=== PATIENT | female | born 1975 | race Caucasian/White ===

== ENCOUNTER → 2017-06-02 10:50 | Outpatient (CLI) | payer OTHER, SELFPAY ==
[2017-06-02 12:03] LABS: Basophils % 0.6 % (0.1-2.0); Eosinophils # 0.3 K/mm3 (0.0-0.4); Hematocrit 39.7 % (37.0-47.0); Lymphocytes # 1.8 K/mm3 (0.7-4.5); Mean Corpuscular HGB Conc 32.8 g/dL (31.8-35.4); Mean Corpuscular Hemoglobin 30.6 pg (27.0-31.2); Mean Corpuscular Volume 93.4 fl (81-99); Monocytes # 0.5 K/mm3 (0.1-1.0); Monocytes % 7.5 % (1.7-9.3); Neutrophils # 3.7 K/mm3 (1.8-7.8); Neutrophils % 59.9 % (37.0-80.0); Platelet Count 231 K/mm3 (142-424); Red Blood Count 4.25 M/mm3 (4.20-5.40); Red Cell Distribution Width 12.8 % (11.5-17.5); White Blood Count 6.2 K/mm3 (4.8-10.8)
[2017-06-02 13:00] LABS: Alanine Aminotransferase 22 U/L (12-78); Albumin Level 4.3 gm/dL (3.4-5.0); Albumin/Globulin Ratio 1.4 (1.1-1.8); Alkaline Phosphatase 35 U/L (46-116); Aspartate Amino Transferase 12 U/L (15-37); Bilirubin,Total 0.3 mg/dL (0.2-1.0); Blood Urea Nitrogen 15 mg/dL (7-18); Calcium 8.7 mg/dL (8.5-10.1); Carbon Dioxide 28 mmol/L (21.0-32.0); Chloride 106 mmol/L (98-107); Chol/HDL Ratio 4.1 (1-3.5); Cholesterol 191 mg/dL (140-200); Creatinine,Serum 0.72 mg/dL (0.55-1.02); Estimated Glomerular Filt Rate 88 ml/min (>60); Ferritin 26 ng/mL (8-388); GFR (African American) 107 ML/MIN (>60); Globulin 3.1 gm/dl (1.3-3.2); Glucose 82 mg/dL (74-106); HDL Cholesterol 47 mg/dL (29-89); LDL Cholesterol 128 mg/dL (0-130); Sodium 143 mmol/L (136-145); Thyroid Stimulating Hormone 2.23 uIU/ml (0.358-3.740); Total Protein,Serum 7.4 gm/dL (6.4-8.2); Triglycerides 80 mg/dL (30-200); VLDL Cholesterol 16 mg/dL (0-40)
[2017-06-03 19:09] LABS: Vitamin D 25 Hydroxy 29.6 ng/mL (30.0-100.0)
== END ==
PROVIDERS: PCP Internal Medicine Adolescent Medicine; Visit Provider Nurse Practitioner Family
DX: Z00.00 Encounter for general adult medical examination without abnormal findings (principal); E03.9 Hypothyroidism, unspecified
CPT/HCPCS: 36415; 80053; 80061; 82652; 82728; 84443; 85025

== ENCOUNTER → 2018-06-22 13:24 | Outpatient (CLI) | payer OTHER, SELFPAY ==
[2018-06-22 15:16] LABS: Alanine Aminotransferase 52 U/L (12-78); Albumin Level 4.9 gm/dL (3.4-5.0); Albumin/Globulin Ratio 1.3 (1.1-1.8); Alkaline Phosphatase 51 U/L (46-116); Anion Gap 17.5 mEq/L (5-15); Aspartate Amino Transferase 37 U/L (15-37); Bilirubin,Total 0.4 mg/dL (0.2-1.0); Blood Urea Nitrogen 10 mg/dL (7-18); Calcium 9.4 mg/dL (8.5-10.1); Carbon Dioxide 26 mmol/L (21.0-32.0); Chloride 100 mmol/L (98-107); Chol/HDL Ratio 4.9 (1-3.5); Cholesterol 281 mg/dL (140-200); Creatinine,Serum 0.75 mg/dL (0.55-1.02); Estimated Glomerular Filt Rate 84 ml/min (>60); Free T4 (Free Thyroxine) 0.79 ng/dl (0.76-1.46); GFR (African American) 102 ML/MIN (>60); Globulin 3.7 gm/dl (1.3-3.2); Glucose 85 mg/dL (74-106); HDL Cholesterol 57 mg/dL (29-89); LDL Cholesterol 208 mg/dL (0-130); Potassium 3.5 mmoL/L (3.5-5.1); Sodium 140 mmol/L (136-145); Thyroid Stimulating Hormone 2.14 uIU/ml (0.358-3.740); Total Protein,Serum 8.6 gm/dL (6.4-8.2); Triglycerides 78 mg/dL (30-200); VLDL Cholesterol 16 mg/dL (0-40)
[2018-06-22 15:35] LABS: Basophils % 0.7 % (0.1-2.0); Eosinophils # 0.1 K/mm3 (0.0-0.4); Eosinophils % 1.3 % (0.1-12.0); Hematocrit 43.9 % (37.0-47.0); Hemoglobin 14.5 g/dL (12.2-16.2); Lymphocytes % 33.1 % (10-50); Mean Corpuscular HGB Conc 33.1 g/dL (31.8-35.4); Mean Corpuscular Hemoglobin 31.1 pg (27.0-31.2); Mean Platelet Volume 8.2 fl (7.4-10.4); Monocytes # 0.4 K/mm3 (0.1-1.0); Monocytes % 6.4 % (1.7-9.3); Neutrophils # 3.5 K/mm3 (1.8-7.8); Neutrophils % 58.5 % (37.0-80.0); Platelet Count 300 K/mm3 (142-424); Red Blood Count 4.67 M/mm3 (4.20-5.40); Red Cell Distribution Width 12.9 % (11.5-17.5)
[2018-06-25 13:22] LABS: Triiodothyronine (T3) Free 2.2 pg/mL (2.0-4.4); Vitamin B12 467 pg/mL (232-1245)
[2018-06-25 13:23] LABS: Vitamin D 25 Hydroxy 32.7 ng/mL (30.0-100.0)
== END ==
PROVIDERS: Visit Provider Nurse Practitioner Family
DX: Z00.00 Encounter for general adult medical examination without abnormal findings (principal); E03.9 Hypothyroidism, unspecified; E55.9 Vitamin D deficiency, unspecified; Z86.39 Personal history of other endocrine, nutritional and metabolic disease
CPT/HCPCS: 36415; 80053; 80061; 82607; 82652; 84439; 84443; 84481; 85025

== ENCOUNTER → 2018-08-25 14:24 | Outpatient (CLI) | payer OTHER, SELFPAY ==
[2018-08-25 15:48] LABS: Basophils # 0.1 K/mm3 (0-0.2); Basophils % 0.7 % (0.1-2.0); Eosinophils # 0.2 K/mm3 (0.0-0.4); Eosinophils % 2.4 % (0.1-12.0); Hematocrit 40.3 % (37.0-47.0); Hemoglobin 13.7 g/dL (12.2-16.2); Lymphocytes # 2.3 K/mm3 (0.7-4.5); Lymphocytes % 34.7 % (10-50); Mean Corpuscular HGB Conc 33.8 g/dL (31.8-35.4); Mean Corpuscular Volume 91.5 fl (81-99); Mean Platelet Volume 7.6 fl (7.4-10.4); Monocytes # 0.3 K/mm3 (0.1-1.0); Monocytes % 4.7 % (1.7-9.3); Neutrophils # 3.8 K/mm3 (1.8-7.8); Neutrophils % 57.4 % (37.0-80.0); Platelet Count 282 K/mm3 (142-424); Red Blood Count 4.41 M/mm3 (4.20-5.40); Red Cell Distribution Width 12.8 % (11.5-17.5); White Blood Count 6.6 K/mm3 (4.8-10.8)
[2018-08-25 16:22] LABS: Alanine Aminotransferase 30 U/L (12-78); Albumin Level 4.9 gm/dL (3.4-5.0); Albumin/Globulin Ratio 1.4 (1.1-1.8); Alkaline Phosphatase 50 U/L (46-116); Anion Gap 12.9 mEq/L (5-15); Aspartate Amino Transferase 20 U/L (15-37); Bilirubin,Total 0.4 mg/dL (0.2-1.0); Blood Urea Nitrogen 10 mg/dL (7-18); Calcium 9.3 mg/dL (8.5-10.1); Carbon Dioxide 28 mmol/L (21.0-32.0); Chloride 101 mmol/L (98-107); Chol/HDL Ratio 4.3 (1-3.5); Cholesterol 206 mg/dL (140-200); Creatinine,Serum 0.75 mg/dL (0.55-1.02); Estimated Glomerular Filt Rate 84 ml/min (>60); Free T4 (Free Thyroxine) 0.88 ng/dl (0.76-1.46); Free Thyroxine Index 2.4 ug/dL (5.93-13.13); GFR (African American) 102 ML/MIN (>60); Globulin 3.6 gm/dl (1.3-3.2); Glucose 83 mg/dL (74-106); HDL Cholesterol 48 mg/dL (29-89); LDL Cholesterol 144 mg/dL (0-130); Potassium 3.9 mmoL/L (3.5-5.1); Sodium 138 mmol/L (136-145); T4 (Thyroxine) 8.3 ug/dl (4.7-13.3); Thyroid Stimulating Hormone 1.97 uIU/ml (0.358-3.740); Total Protein,Serum 8.5 gm/dL (6.4-8.2); Triglycerides 68 mg/dL (30-200); Triiodothryronine (T3) Uptake 29 % (31-39); VLDL Cholesterol 14 mg/dL (0-40)
[2018-08-26 08:19] LABS: Thyroid Peroxidase Antibodies 216 IU/mL (0-34)
[2018-08-27 13:07] LABS: Triiodothyronine (T3) Free 2.8 pg/mL (2.0-4.4); Vitamin B12 513 pg/mL (232-1245)
== END ==
PROVIDERS: PCP Internal Medicine Adolescent Medicine; Visit Provider Nurse Practitioner Obstetrics & Gynecology
DX: R53.82 Chronic fatigue, unspecified (principal); Z01.419 Encounter for gynecological examination (general) (routine) without abnormal findings
CPT/HCPCS: 36415; 80053; 80061; 82607; 82652; 84436; 84439; 84443; 84479; 84481; 85025; 86376

== ENCOUNTER 2020-08-01 11:46 | Emergency (ER) | payer BC, SELFPAY ==
[2020-08-01 12:07] VITALS: BP 138/87; PULSE 83; RESP 14; TEMP 36.7; O2SAT 100; BMI 23.8
--- NOTE | 2020-08-01 12:13 | HMH.EDUTC ---
[facility] [place] Clinical Impression: Tooth [place] Disposition: Home, Self-Care Condition on Discharge: Good Instructions: Tooth Abscess, DI for Tooth Abscess Additional Instructions: follow up with dentist on monday bland diet Monitor temperature. Seek treatment if fever develops. Follow-up immediately if new or worse symptoms worsen or no noticeable improvement over 48 hours. Increase fluids such as water, Gatorade, Powerade, juice or Pedialyte with limited formula/dietary in children No food is okay as long as you are drinking. Once ready to eat start bland such as bananas, rice, applesauce, toast. Follow-up immediately for new or worsening symptoms or no noticeable improvement over the next 48 hours. Prescriptions: ondansetron HCL [Zofran 4mg Tab*] 4 mg PO TIDP PRN 4 Days #8 tab PRN Reason: Nausea Prescription Printed Referrals: Jose Interiano MD [Primary Care Provider] - Time of Disposition: 13:26 Medical Decision Making - Sven Inquiry Pt receiving controlled substance: No Vital Signs: 08/01/20 12:07 Temperature 98.1 F Temperature Source Oral Pulse Rate [Right Brachial] 83 Respiratory Rate 14 Blood Pressure [Right Arm] 138/87 Blood Pressure Mean [Right Arm] 104 Blood Pressure Source [Right Arm] Automatic Cuff Blood Pressure Position [Right Arm] Sitting 02 Sat by Pulse Oximetry 100 Oxygen Delivery Method Room Air - Lab Data Lab Results 08/01/20 12:20: WBC 10.4, RBC 4.47, Hgb 13.9, Hct 40.9, MCV 91.4, MCH 31.1, MCHC 34.0, RDW 12.9, Plt Count 310, MPV 7.8, Neut % (Auto) 82.2 H, Lymph % (Auto) 11.9, [place] % (Auto) 4.8, Eos % (Auto) 0.7, Baso % (Auto) 0.4, Neut # (Auto) 8.5 H, Lymph # (Auto) 1.2, [place] # (Auto) 0.5, Eos # (Auto) 0.1, Baso # (Auto) 0.0 08/01/20 12:20: Sodium 140, Potassium 3.6, Chloride 104, Carbon Dioxide 23, Anion Gap 16.6 H, BUN 6 L, Creatinine 0.60, Estimated Creat Clear 109, Estimated GFR 108, Est GFR ( Amer) 130, Glucose 107 H, Calcium 10.0, Total Bilirubin 0.6, AST 34, ALT 31, Alkaline Phosphatase 63, Total Protein 8.9 H, Albumin 5.4 H, Globulin 3.5 H, Albumin/Globulin Ratio 1.5 Result diagrams: 08/01/20 12:20 08/01/20 12:20 Orders (Tests/Meds): ED MEDICATIONS Generic Name Dose Route Start Last Admin Trade Name Freq PRN Reason Stop Dose Admin Sodium Chloride 1,000 mls @ 999 mls/hr 08/01/20 12:15 08/01/20 12:10 Sod Chlor 0.9% 1000ml Bag IV 08/01/20 13:15 999 mls/hr .Q1H1M ABENA Administration Sodium Chloride 10 ml 08/01/20 12:09 Sodium Chloride 0.9% 10ml Flush Syringe IV 08/02/20 00:12 NEEDED PRN Maintain IV Site Discontinued Medications Generic Name Dose Route Start Last Admin Trade Name Freq PRN Reason Stop Dose Admin Ceftriaxone Sodium 1 gm/ 50 mls @ 100 mls/hr 08/01/20 12:09 08/01/20 12:25 Sodium Chloride IV 08/01/20 12:38 100 mls/hr ONCE ONE Administration Protocol Ketorolac Tromethamine 15 mg 08/01/20 12:09 08/01/20 12:30 Ketorolac 30mg/Ml Vial IV 08/01/20 12:10 15 mg ONCE ONE Administration Promethazine HCl 12.5 mg 08/01/20 12:09 08/01/20 12:32 Promethazine Hcl 25mg/Ml 1ml Vial IV 08/01/20 12:10 12.5 mg ONCE ONE Administration Sodium Chloride 25 ml 08/01/20 12:09 Sodium Chloride 0.9% 25ml Bag IV 08/01/20 12:10 ONCE ONE [facility] [place] - General Chief complaint: [facility] Stated complaint: dental pain, dehydrated Time Seen by Provider: 08/01/20 12:13 Mode of Arrival: Ambulatory Source of Information: Patient, Parent(s) Limitations: No Limitations Description of Symptoms (Recalled from Triage Doc. by RN): unable to eat or drink, abcess x2 days, nausea, currently on amoxicillin 500 mg TID, and percocet HEENT Symptoms (Recalled from RN notes): No Resp Symptoms (Recalled from RN notes): No Skin Symptoms (Recalled from RN notes): No MS Symptoms (Recalled from RN notes): No Functional Status (Recalled from RN notes): dental abcess - History of Present
[2020-08-01 12:31] LABS: Basophils % 0.4 % (0.1-2.0); Chloride 104 mmol/L (98-107); Eosinophils # 0.1 K/mm3 (0.0-0.4); Eosinophils % 0.7 % (0.1-12.0); Hematocrit 40.9 % (37.0-47.0); Hemoglobin 13.9 g/dL (12.2-16.2); Lymphocytes # 1.2 K/mm3 (0.7-4.5); Lymphocytes % 11.9 % (10-50); Mean Corpuscular Hemoglobin 31.1 pg (27.0-31.2); Mean Corpuscular Volume 91.4 fl (81-99); Mean Platelet Volume 7.8 fl (7.4-10.4); Monocytes # 0.5 K/mm3 (0.1-1.0); Monocytes % 4.8 % (1.7-9.3); Neutrophils # 8.5 K/mm3 (1.8-7.8); Neutrophils % 82.2 % (37.0-80.0); Platelet Count 310 K/mm3 (142-424); Red Blood Count 4.47 M/mm3 (4.20-5.40); Red Cell Distribution Width 12.9 % (11.5-17.5); White Blood Count 10.4 K/mm3 (4.8-10.8)
[2020-08-01 12:32] LABS: Potassium 3.6 mmoL/L (3.5-5.1); Sodium 140 mmol/L (136-145)
[2020-08-01 12:34] LABS: Alanine Aminotransferase 31 U/L (12-78); Aspartate Amino Transferase 34 U/L (14-36); Blood Urea Nitrogen 6 mg/dl (7-17); Creatinine Clearance Estimated 109 mL/min (50-200); Estimated Glomerular Filt Rate 108 ml/min (>60); GFR (African American) 130 ML/MIN (>60)
[2020-08-01 12:35] LABS: Albumin Level 5.4 g/dl (3.5-5.0); Albumin/Globulin Ratio 1.5 (1.1-1.8); Alkaline Phosphatase 63 U/L (38-126); Anion Gap 16.6 mEq/L (5-15); Bilirubin,Total 0.6 mg/dl (0.2-1.3); Carbon Dioxide 23 mmol/L (22.0-30.0); Globulin 3.5 g/dL (1.3-3.2); Glucose 107 mg/dl (74-100); Total Protein,Serum 8.9 g/dl (6.3-8.2)
[2020-08-01 13:37] VITALS: BP 130/70; PULSE 70; RESP 14; TEMP 36.7; O2SAT 100
== END 2020-08-01 13:40 | disposition home or self-care (01) ==
LOC: ER 12:02 → UTC 12:02
PROVIDERS: Emergency Provider Nurse Practitioner Family; PCP Internal Medicine Adolescent Medicine
DX: K04.7 Periapical abscess without sinus (principal)
CPT/HCPCS: 80053; 85025; 96360; 96365; 96376; 99202; G0463

== ENCOUNTER 2020-09-13 06:12 | Emergency (ER) | payer BC, SELFPAY ==
[2020-09-13] VITALS (8 sets, daily range): BP systolic 91–123; BP diastolic 58–74; PULSE 80–93; RESP 15–20; TEMP 36.4–36.8; O2SAT 97–100; BMI 22.1
--- NOTE | 2020-09-13 | ECG_ITS ---
APPROVED REPORT Exam: Resting ECG HR:90 bpm ECG Measurements Heart Rate 90 AXES UT 154 P 80 QRSd 80 QRS 74 QT 382 T 66 QTc 467 Conclusion Normal sinus rhythm Normal ECG Electronically signed by : Jose Interiano, 09/19/2020 07:42:22
--- NOTE | 2020-09-13 06:15 | XR_ITS ---
PROCEDURE INFORMATION: Exam: XR Chest Exam date and time: 09/13/2020 6:15 AM Age: 45 years old Clinical indication: Patient HX: Mid anterior chest pain since 4 this morning TECHNIQUE: Imaging protocol: XR of the chest. Views: 2 views. COMPARISON: No relevant prior studies available. FINDINGS: Lungs: The lungs are clear without consolidation. Pleural spaces: Unremarkable. No pleural effusion. No pneumothorax. Heart/Mediastinum: The cardiac silhouette, mediastinal contours and hilar shadows appear unremarkable. Bones/joints: Osseous structures grossly intact. IMPRESSION: No acute cardiopulmonary disease.
[2020-09-13 06:27] LABS: Basophils # 0.1 K/mm3 (0-0.2); Basophils % 0.3 % (0.1-2.0); Eosinophils # 0.2 K/mm3 (0.0-0.4); Eosinophils % 1.3 % (0.1-12.0); Hematocrit 40.9 % (37.0-47.0); Hemoglobin 13.8 g/dL (12.2-16.2); Lymphocytes % 12.5 % (10-50); MANUAL DIFFERENTIAL MANUAL DIFFERENTIAL (MANUAL DIFF); Mean Corpuscular HGB Conc 33.6 g/dL (31.8-35.4); Mean Corpuscular Hemoglobin 30.7 pg (27.0-31.2); Mean Corpuscular Volume 91.4 fl (81-99); Mean Platelet Volume 7.7 fl (7.4-10.4); Monocytes # 0.5 K/mm3 (0.1-1.0); Monocytes % 3.3 % (1.7-9.3); Neutrophils # 12.9 K/mm3 (1.8-7.8); Neutrophils % 82.6 % (37.0-80.0); Platelet Count 322 K/mm3 (142-424); Red Blood Count 4.48 M/mm3 (4.20-5.40); Red Cell Distribution Width 12.7 % (11.5-17.5); White Blood Count 15.7 K/mm3 (4.8-10.8)
--- NOTE | 2020-09-13 06:33 | PC.NURSE ---
pt to radiology
[2020-09-13 06:34] LABS: Adenovirus,PCR Not Detected (NotDetected); Bordetella Pertussis Not Detected (NotDetected); Chlamydophila Pneumoniae, PCR Not Detected (NotDetected); Coronavirus 19, PCR Not Detected (NotDetected); Coronavirus 229E Not Detected (NotDetected); Coronavirus NL63 Not Detected (NotDetected); Coronavirus OC43 Not Detected (NotDetected); Coronovirus HKU1,PCR Not Detected (NotDetected); Human Metapneumovirus Not Detected (NotDetected); Influenza A, PCR Not Detected (NotDetected); Influenza AH1, 2009 Not Detected (NotDetected); Influenza AH1, PCR Not Detected (NotDetected); Influenza AH3,PCR Not Detected (NotDetected); Influenza B, PCR Not Detected (NotDetected); Mycoplasma Pneumoniae, PCR Not Detected (NotDetected); Parainfluenza 1, PCR Not Detected (NotDetected); Parainfluenza 2, PCR Not Detected (NotDetected); Parainfluenza 3, PCR Not Detected (NotDetected); Parainfluenza 4, PCR Not Detected (NotDetected); Respiratory Syncytial Virus Not Detected (NotDetected); Rhinovirus/Enterovirus Not Detected (NotDetected)
[2020-09-13 06:35] LABS: Lipase 141 U/L (23-300)
--- NOTE | 2020-09-13 06:35 | PC.NURSE ---
pt gone to radiology
[2020-09-13 06:36] LABS: Alanine Aminotransferase 68 U/L (12-78); Albumin Level 5.2 g/dl (3.5-5.0); Alkaline Phosphatase 73 U/L (38-126); Amylase 79 U/L (30-110); Anion Gap 14.4 mEq/L (5-15); Aspartate Amino Transferase 143 U/L (14-36); Bilirubin,Direct 0.6 mg/dl (0.0-0.4); Bilirubin,Indirect 0.3 mg/dL (0.0-0.9); Bilirubin,Total 0.9 mg/dl (0.2-1.3); Bilirubin,Unconjugated 0.3 mg/dL (0.0-1.1); Blood Urea Nitrogen 15 mg/dl (7-17); Calcium 9.4 mg/dl (8.4-10.2); Carbon Dioxide 24 mmol/L (22.0-30.0); Chloride 104 mmol/L (98-107); Creatinine Clearance Estimated 70 mL/min (50-200); Estimated Glomerular Filt Rate 67 ml/min (>60); GFR (African American) 82 ML/MIN (>60); Glucose 106 mg/dl (74-100); Potassium 3.4 mmoL/L (3.5-5.1); Sodium 139 mmol/L (136-145); Total Protein,Serum 8.4 g/dl (6.3-8.2)
--- NOTE | 2020-09-13 06:40 | PC.NURSE ---
pt back in room from radiology
[2020-09-13 06:41] LABS: C-Reactive Protein 1.4 mg/L (0-4)
[2020-09-13 06:53] LABS: Procalcitonin 0.047 ng/mL (0.0-2.0)
[2020-09-13 06:55] LABS: T4 (Thyroxine) 10.3 ug/dl (5.53-11.0)
[2020-09-13 06:58] LABS: Eosinophils % 1 % (0-3); Lymphocytes % 10 % (10-50); Monocytes % 5 % (2-9); Neutrophils % 82 % (42-76); Total Cells Counted 100
[2020-09-13 07:00] LABS: Platelet Estimate Normal
[2020-09-13 07:01] LABS: Microcytosis 1+; Ovalocytes 1+
--- NOTE | 2020-09-13 07:02 | HMH.EDCP ---
ED Disposition Clinical Impression: Chest pain Qualifiers: Chest pain type: precordial pain Qualified Code(s): R07.2 - Precordial pain Disposition: Home, Self-Care Condition on Discharge: Good Instructions: DI for Chest Pain Additional Instructions: call pcp in am for follow up Referrals: Jose Interiano MD [Primary Care Provider] - - Critical Care Critical Care Time: No Attestation: On 09/13/20, the high probability of a clinically significant, sudden or life threatening deterioration of the following system(s) required my full and direct attention, intervention and personal management. The time I documented below is in addition to time spent performing reported procedures but includes the following listed in this critical care notation. Medical Decision Making - Medical Records Medical records reviewed: Yes: I reviewed the patient's medical records. - Sven Inquiry Pt receiving controlled substance: No Vital Signs: 09/13/20 06:12 09/13/20 06:30 09/13/20 07:00 Temperature 97.5 F L Temperature Source Oral Pulse Rate 86 81 Pulse Rate [Right Brachial] 84 Respiratory Rate 16 15 18 Blood Pressure 112/65 122/69 Blood Pressure [Right Arm] 123/74 Blood Pressure Mean Blood Pressure Mean [Right Arm] 90 Blood Pressure Source [Right Arm] Automatic Cuff Blood Pressure Position [Right Arm] Sitting 02 Sat by Pulse Oximetry 98 100 98 Oxygen Delivery Method Room Air 09/13/20 07:51 09/13/20 08:00 09/13/20 08:30 Temperature Temperature Source Pulse Rate 82 82 80 Pulse Rate [Right Brachial] Respiratory Rate 18 20 18 Blood Pressure 99/60 L 101/58 L 102/60 L Blood Pressure [Right Arm] Blood Pressure Mean 69 69 70 Blood Pressure Mean [Right Arm] Blood Pressure Source [Right Arm] Blood Pressure Position [Right Arm] 02 Sat by Pulse Oximetry 99 98 99 Oxygen Delivery Method 09/13/20 09:00 Temperature Temperature Source Pulse Rate 93 H Pulse Rate [Right Brachial] Respiratory Rate 18 Blood Pressure 91/58 L Blood Pressure [Right Arm] Blood Pressure Mean 68 Blood Pressure Mean [Right Arm] Blood Pressure Source [Right Arm] Blood Pressure Position [Right Arm] 02 Sat by Pulse Oximetry 97 Oxygen Delivery Method - Lab Data Lab results reviewed: Yes: I reviewed the patient's lab results. Lab Results 09/13/20 06:15: WBC 15.7 H, RBC 4.48, Hgb 13.8, Hct 40.9, MCV 91.4, MCH 30.7, MCHC 33.6, RDW 12.7, Plt Count 322, MPV 7.7, Neut % (Auto) 82.6 H, Lymph % (Auto) 12.5, [place] % (Auto) 3.3, Eos % (Auto) 1.3, Baso % (Auto) 0.3, Neut # (Auto) 12.9 H, Lymph # (Auto) 2.0, Hand # (Auto) 0.5, Eos # (Auto) 0.2, Baso # (Auto) 0.1, Total Counted 100, Neutrophils % (Manual) 82 H, Band Neutrophils % 2.0, Lymphocytes % (Manual) 10, Monocytes % (Manual) 5, Eosinophils % (Manual) 1, Platelet Estimate Normal, Microcytosis 1+, Ovalocytes 1+, ESR 16 09/13/20 06:15: Sodium 139, Potassium 3.4 L, Chloride 104, Carbon Dioxide 24, Anion Gap 14.4, BUN 15, Creatinine 0.90, Estimated Creat Clear 70, Estimated GFR 67, Est GFR ( Amer) 82, Glucose 106 H, Calcium 9.4, Total Bilirubin 0.9, Direct Bilirubin 0.6 H, Conjugated Bilirubin 0.0, Indirect Bilirubin 0.3, Unconjugated Bilirubin 0.3, AST 143 H, ALT 68, Alkaline Phosphatase 73, C-Reactive Protein 1.4, Total Protein 8.4 H, Albumin 5.2 H, Amylase 79, Procalcitonin 0.047, TSH 1.96, Thyroxine (T4) 10.3 09/13/20 06:15: Lipase 141 09/13/20 06:15: Troponin I < 0.01 09/13/20 06:15: Serum HCG, Qual Negative 09/13/20 06:27: Chlamy pneumoniae PCR Not detected, Adenovirus (PCR) Not detected, B. pertussis DNA (PCR) Not detected, Coronavirus OC43 (PCR) Not detected, Coronavirus HKU1 (PCR) Not detected, Coronavirus 229E (PCR) Not detected, SARS-CoV-2 (PCR) Not detected, Coronavirus NL63 (PCR) Not detected, Human Metapneumovir PCR Not detected, Influenza A (H1) PCR Not detected, Influ A (H1N1/09) PCR Not detected, Influenza A (H3) PCR Not detected, Influenza Type A
[2020-09-13 07:09] LABS: Thyroid Stimulating Hormone 1.96 uIU/mL (0.465-4.68)
--- NOTE | 2020-09-13 07:14 | PC.NURSE ---
family at bedside
--- NOTE | 2020-09-13 07:25 | PC.NURSE ---
pt ambulated to bathroom for UA. pt states she forgot to go in the cup provided
[2020-09-13 07:27] LABS: Troponin I < 0.01 ng/ml (0.00-0.034)
[2020-09-13 07:28] LABS: Erythrocyte Sedimentation Rate 16 mm/hr (0-20)
[2020-09-13 07:56] LABS: HCG Qualitative, Serum Negative (Negative)
--- NOTE | 2020-09-13 07:56 | PC.NURSE ---
pt resting quietly states currently pain free
[2020-09-13 09:16] LABS: Microscopic, Urine URINE MICROSCOPIC (MICROSCOPIC)
[2020-09-13 09:19] LABS: Appearance,Urine CLEAR (Clear); Bilirubin,Urine Negative (Negative); Blood, Urine Negative (Negative); Color,Urine YELLOW (Yellow); Glucose,Urine (UA) Negative (Negative); Ketones,Urine Negative (Negative); Leukocyte Esterase,Urine Negative (Negative); Nitrate,Urine Negative (Negative); PH,Urine 5.5 (5.0-8.5); Protein,Urine Negative (Negative); Specific Gravity, Urine <= 1.005 (1.005-1.030); Urobilinogen,Urine 0.2 EU/dl (0.2)
[2020-09-13 09:20] LABS: Urine Pregnancy, HCG Qual. Negative (Negative)
[2020-09-13 09:45] LABS: Troponin I < 0.01 ng/ml (0.00-0.034)
== END 2020-09-13 10:01 | disposition home or self-care (01) ==
PROVIDERS: Emergency Medicine; Emergency Provider Emergency Medicine; PCP Internal Medicine Adolescent Medicine
DX: R07.2 Precordial pain (principal); R10.13 Epigastric pain; E78.5 Hyperlipidemia, unspecified
CPT/HCPCS: 71046; 80048; 80076; 81001; 81025; 82150; 83690; 84145; 84436; 84443; 84484; 84703; 85007; 85025; 85651; 86140; 87581; 87633; 87798; 93005; 96365; 96375; 99283

== ENCOUNTER → 2020-12-04 07:50 | Outpatient (CLI) | payer BC, SELFPAY ==
--- NOTE | 2020-12-04 07:52 | US_ITS ---
PROCEDURE: US ABDOMEN LIMITED CLINICAL INDICATION: RUQ PAIN COMPARISON: No exams were available for comparison FINDINGS: PANCREAS: Unremarkable. No obvious mass or abnormal fluid collection. No ductal dilatation LIVER: No focal liver lesions demonstrated. Homogeneous echogenicity. No intrahepatic biliary ductal dilatation evident. There is appropriate direction of blood flow within a non dilated portal vein RIGHT KIDNEY: Unremarkable. Normal size and echogenicity. No hydronephrosis GALLBLADDER: No gallstones, gallbladder wall thickening, pericholecystic fluid, or biliary dilatation. IMPRESSION: Unremarkable limited abdominal ultrasound as detailed above disc Dictated by: Britton Pfeiffer MD 12/04/2020 12:44 Britton Pfeiffer MD in [place] 12/04/2020 12:44
== END ==
PROVIDERS: PCP Internal Medicine Adolescent Medicine; Visit Provider Internal Medicine Adolescent Medicine
DX: R10.11 Right upper quadrant pain (principal)
CPT/HCPCS: 76705

== ENCOUNTER → 2020-12-25 10:43 | Outpatient (CLI) | payer BC, SELFPAY ==
[2020-12-25 12:22] LABS: Chloride 102 mmol/L (98-107); Potassium 4.3 mmoL/L (3.5-5.1); Sodium 143 mmol/L (136-145)
[2020-12-25 12:25] LABS: Alanine Aminotransferase 27 U/L (12-78); Albumin Level 4.9 g/dl (3.5-5.0); Albumin/Globulin Ratio 1.5 (1.1-1.8); Alkaline Phosphatase 63 U/L (38-126); Anion Gap 18.3 mEq/L (5-15); Aspartate Amino Transferase 32 U/L (14-36); Bilirubin,Total 0.3 mg/dl (0.2-1.3); Blood Urea Nitrogen 9 mg/dl (7-17); Calcium 9.6 mg/dl (8.4-10.2); Carbon Dioxide 27 mmol/L (22.0-30.0); Estimated Glomerular Filt Rate 77 ml/min (>60); GFR (African American) 93 ML/MIN (>60); Globulin 3.2 g/dL (1.3-3.2); Glucose 87 mg/dl (74-100); Total Protein,Serum 8.1 g/dl (6.3-8.2)
== END ==
PROVIDERS: Visit Provider Internal Medicine Adolescent Medicine
DX: R74.01 Elevation of levels of liver transaminase levels (principal)
CPT/HCPCS: 36415; 80053

== ENCOUNTER 2024-09-04 15:09 | Outpatient (CLI) | payer BC, SELFPAY ==
--- NOTE | 2024-09-04 13:30 | MM_ITS ---
PROCEDURE INFORMATION: Exam: MG Bilateral Screening 3D Mammography Exam date and time: 09/04/2024 3:32 PM Age: 49 years old Clinical indication: Screening exam. TECHNIQUE: Imaging protocol: Bilateral Screening tomosynthesis and 2D mammography including computer-aided detection (CAD) when performed. COMPARISON: 1. MG DMDB DIG MAMM-DX CAPO 12/02/2015 2:47 PM 2. MG DMDXUAVL DIG MAMM-DX UNI ADD VIEWS-LT 04/06/2015 9:10 AM FINDINGS: MAMMOGRAPHY: Breast composition: The breasts are heterogeneously dense, which may obscure small masses. Mass: No suspicious masses. Architectural distortion: None. Calcifications: No suspicious calcifications. Asymmetric density: None. Skin thickening: None. Axillary adenopathy: None. IMPRESSION: No mammographic evidence of malignancy. Annual screening is recommended unless otherwise clinically indicated. ASSESSMENT: BI-RADS 1, Negative.
== END 2024-09-04 23:59 | disposition home or self-care (01) ==
LOC: RAD 15:10
PROVIDERS: PCP Internal Medicine Adolescent Medicine; Visit Provider Obstetrics & Gynecology
DX: Z12.31 Encounter for screening mammogram for malignant neoplasm of breast (principal); Z80.3 Family history of malignant neoplasm of breast
CPT/HCPCS: 77063; 77067